=== PATIENT | male | born 1980 | race Asian ===

== ENCOUNTER 2016-11-03 18:16 | Emergency (ER) | payer OTHER ==
[~2016-11-03] VITALS: Ht 165.1 cm; Wt 68.2 kg
[2016-11-03 20:22] VITALS: BP 128/82
== END 2016-11-03 20:23 | disposition home or self-care (01) ==
LOC: EMS 18:19
DX: J06.9 Acute upper respiratory infection, unspecified (principal)
CPT/HCPCS: 99283